=== PATIENT | female | born 1945 | race Caucasian/White ===

== ENCOUNTER 2016-05-10 19:17 | Emergency (ER) | payer MEDICARE, BC ==
[~2016-05-10] VITALS: Ht 172.7 cm; Wt 77.4 kg
[2016-05-10] VITALS (8 sets, daily range): BP systolic 85–195; BP diastolic 44–91; PULSE 74–124; RESP 16–22; TEMP 97.9; O2SAT 95–99
[~2016-05-10 19:17] MED LIST: ALPR0.25 PO; AMLO5TAB2 PO; ASPI81CH CHEW; CYCL1TAB29 PO; FLUT50SP EACH NARE; FLUTI44I INH; GENT0.2D2 EACH EYE; HYDR-3516 PO; MECL12.574 PO; MONT10TA2 PO; MULTTAB67 PO; RANI150C PO; TRIA.1%T TOPICAL; VENTAER INH
--- NOTE | 2016-05-10 19:53 | PD ---
HPI Chief Complaint: Hypertension Time Seen by Provider: 19:39 Travel History International Travel<30 days: No Contact w/Intl Traveler<30days: No Traveled to known affect area: No History of Present Illness HPI 70-year-old female here for evaluation of elevated blood pressure and left shoulder pain. The patient reports having an aching sensation in her left shoulder/neck area that radiates down her left arm causing paresthesias down her left arm. She was seen and a neurology clinic today, and has MRI scheduled for tomorrow. While in the office, it was noted that her blood pressure was elevated around 180/100. She was told to take a Xanax when she got home. She states that instead of taking his Xanax she took an extra half of her amlodipine as well as a hydrocodone pill. Repeat blood pressure was still elevated, so she decided to present to the emergency department for evaluation. She denies history of cardiac disease. There is family history of cardiac disease. She tells me that she has a left bundle branch block and is followed by corporate safety coordinator Dr. Ge. No dyspnea. PFSH Past Medical History Diabetes: No Diminished Hearing: No Hypertension: Yes Social History Alcohol Use: No Tobacco Use: No Substance Use: No Allergies-Medications (Allergen,Severity, Reaction): Coded Allergies: Benadryl (Verified Allergy, Severe, Dizziness, 05/10/16) Reported Meds & Prescriptions Reported Meds & Active Scripts Active Ranitidine (Ranitidine HCl) 150 Mg Cap 150 Mg PO DAILY PRN Meclizine (Meclizine HCl) 12.5 Mg Tab 12.5 Mg PO DIRECTED PRN Flexeril (Cyclobenzaprine HCl) 10 Mg Tab 10 Mg PO WEEK PRN Flovent Hfa 10.6 GM Inh (Fluticasone Propionate) 44 Mcg/Act Inh 2 Puff INH DAILY 1-2 puffs daily at the same time. Ventolin Hfa 18 GM Inh (Albuterol Sulfate) 90 Mcg/Act Aer 1 Puff INH Q4H PRN Singulair (Montelukast Sodium) 10 Mg Tab 10 Mg PO HS Reported Aspirin 81 Mg Chew 81 Mg CHEW DAILY Multiple Vitamin 1 Tab 1 Tab PO DAILY [place] Mild Opth Drops (Hypromellose) 0.2% Drops 1 Drop EACH EYE Q6H PRN Hydrocodone-Acetaminophen 5-325 mg Tab 1 Tab PO WEEK PRN Aspirin 81 Mg Chew 81 Mg CHEW DAILY Alprazolam 0.25 Mg Tab 0.25 Mg PO WEEKLY PRN Triamcinolone Topical (Triamcinolone Acetonide) 0.1% Cream 1 Applic TOPICAL ONCE Fluticasone Nasal [place] 50 Mcg/Act Naspr 50 Mcg EACH NARE DAILY 50 mcg/spray Amlodipine (Amlodipine Besylate) 5 Mg Tab 2.5 Mg PO DAILY Review of Systems Except as stated in HPI: all other systems reviewed are Neg Physical Exam Narrative GENERAL: Well-developed, well-nourished, appears anxious, no acute distress. SKIN: Warm and dry. No rash. HEAD: Atraumatic. Normocephalic. EYES: Pupils equal and round. No scleral icterus. No injection or drainage. ENT: Mucous membranes pink and moist. NECK: Trachea midline. No JVD. CARDIOVASCULAR: Regular rate and rhythm. Distal pulses brisk and equal bilaterally. RESPIRATORY: No accessory muscle use. Clear to auscultation. Breath sounds equal bilaterally. GASTROINTESTINAL: Abdomen soft, non-tender, nondistended. MUSCULOSKELETAL: No obvious deformities. No clubbing. No cyanosis. No edema. NEUROLOGICAL: Awake and alert. No obvious cranial nerve deficits. Motor grossly within normal limits. Normal speech. PSYCHIATRIC: Appropriate mood and affect; insight and judgment normal. Data Data Last Documented VS Vital Signs Date Time Temp Pulse Resp B/P Pulse Ox O2 Delivery O2 Flow Rate FiO2 05/10/16 22:12 95 20 192/72 98 Room Air 05/10/16 19:25 97.9 Orders Electrocardiogram (05/10/16 19:50) Basic Metabolic Panel (Bmp) (05/10/16 19:50) Ckmb (Isoenzyme) Profile (05/10/16 19:50) Complete Blood Count With Diff (05/10/16 19:50) Magnesium (Mg) (05/10/16 19:50) Prothrombin Time / Inr (Pt) (05/10/16 19:50) Act Partial Throm Time (Ptt) (05/10/16 19:50) Troponin I (05/10/16 19:50) Chest, Single Ap (05/10/16 19:50) Ecg Monitoring (05/10/16 19:50) Bilateral Bp Monitoring (05/10/16 19:50) Iv Access Insert/Monitor (05/10/16 19:50) Oximetry (05/10/16 19:50) Sodium Chloride 0.9% Flush (Ns Flush) (05/10/16 20:00) Nitroglycerin Sl (Nitrostat Sl) (05/10/16 20:00) Sodium Chlor 0.9% 1000 Ml Inj (Ns 1000 M (05/10/16 20:30) CKMB (05/10/16 20:10) CKMB% (05/10/16 20:10) Alprazolam (Xanax) (05/10/16 21:15) Troponin I (05/10/16 22:00) Labs Laboratory Tests Test 05/10/16 05/10/16 20:10 21:55 White Blood Count 11.6 TH/MM3 Red Blood Count 4.11 MIL/MM3 Hemoglobin 13.3 GM/DL Hematocrit 37.7 % Mean Corpuscular Volume 91.8 FL Mean Corpuscular Hemoglobin 32.5 PG Mean Corpuscular Hemoglobin 35.3 % Concent Red Cell Distribution Width 12.3 % Platelet Count 228 TH/MM3 Mean Platelet Volume 7.7 FL Neutrophils (%) (Auto) 75.2 % Lymphocytes (%) (Auto) 17.3 % Monocytes (%) (Auto) 4.5 % Eosinophils (%) (Auto) 0.8 % Basophils (%) (Auto) 2.2 % Neutrophils # (Auto) 8.8 TH/MM3 Lymphocytes # (Auto) 2.0 TH/MM3 Monocytes # (Auto) 0.5 TH/MM3 Eosinophils # (Auto) 0.1 TH/MM3 Basophils # (Auto) 0.3 TH/MM3 CBC Comment DIFF FINAL Differential Comment Prothrombin Time 10.5 SEC Prothromb Time International 1.0 RATIO Ratio Activated Partial 24.7 SEC Thromboplast Time Sodium Level 137 MEQ/L Potassium Level 4.1 MEQ/L Chloride Level 102 MEQ/L Carbon Dioxide Level 27.1 MEQ/L Anion Gap 8 MEQ/L Blood Urea Nitrogen 17 MG/DL Creatinine 0.88 MG/DL Estimat Glomerular Filtration 63 ML/MIN Rate Random Glucose 120 MG/DL Calcium Level 8.4 MG/DL Magnesium Level 2.0 MG/DL Total Creatine Kinase 104 U/L Creatine Kinase MB 1.6 NG/ML Troponin I LESS THAN 0.02 LESS THAN 0.02 NG/ML NG/ML MDM Medical Decision Making Medical Screen Exam Complete: Yes Emergency Medical Condition: Yes Interpretation(s) EKG: Sinus, rate 105, left axis deviation, LBBB, LVH, Differential Diagnosis ACS, pneumothorax, pericarditis, PE, pneumonia, musculoskeletal pain, dissection Narrative Course Initial vital signs show heart rate 124, blood pressure 164/91, pulse ox 90% on room air, oral temp of 97.9F. The patient was given one sublingual nitroglycerin and her blood pressure dropped to 85/44. She was given some normal saline IV, and her blood pressure returned to 164/78. Repeat heart rate is 86. CBC is unremarkable. BMP is unremarkable. Cardiac enzymes are negative. Chest x-ray: Mild consolidation and possible small effusion on the left lung base. She has not been coughing. She has no upper respiratory symptoms. I do not believe she has pneumonia. The patient was made aware of all findings. She tells me that she feels very anxious and is requesting a Xanax. I told her I would like to admit her to the chest pain center for further cardiac evaluation as I am concerned about her symptoms of shoulder pain. She is convinced that her pain in her shoulder and left neck is related to a pinched nerve in her left neck and is musculoskeletal. She tells me that she has had this in the past intermittently. She tells me she does not wish to be admitted to the hospital. I told her I would like to do a repeat troponin, and if this is negative, I will let her go home. Repeat troponin 3 hours after the first is also negative. Patient was made aware of all findings. She is resting comfortably. She tells me she would like to be discharged home. I told her and still concerned about her heart. I will discharge her home with strict return instructions. Diagnosis Primary Impression: Atypical chest pain Additional Impression: Elevated blood pressure reading Referrals: Primary Care Physician 3 days Additional Instructions: Follow-up with your primary care physician this week. Return to the emergency department for worsening symptoms or any other concerns. Disposition: 01 DISCHARGE HOME Condition: Stable Xavi Villanueva MD May 10, 2016 19:53
[2016-05-10] MEDS ORDERED: NITROGLYCERIN 0.4 MG SL 25 TABS/BTL SL ONE (20:00)
[2016-05-10] MEDS ORDERED: SODIUM CHLORIDE 0.9% FLUSH 5 ML FLUSH IVF PRN (20:00)
--- NOTE | 2016-05-10 20:14 | RADHPO ---
EXAM DATE/TIME: 05/10/2016 20:03 [facility] COMPARISON: No previous studies available for comparison. INDICATIONS : Shortness of breath. MEDICAL HISTORY : None. SURGICAL HISTORY : None. ENCOUNTER: Initial ACUITY: 1 day PAIN SCORE: 0/10 LOCATION: Bilateral chest FINDINGS: Mild consolidation and possible small effusion seen left base. Right lung clear. No pneumothorax on e ither side Heart size within normal limits. CONCLUSION: Mild consolidation and possible small effusion of the left lung base. Star Zurita MD on May 10, 2016 at 20:12 Board Certified Radiologist. This report was verified electronically.
[2016-05-10 20:23] LABS: AUTOMATED NEUTROPHIL # 8.8 TH/MM3 (1.8-7.7); BASOPHIL # 0.3 TH/MM3 (0-0.2); BASOPHIL % 2.2 % (0.0-2.0); EOSINOPHIL # 0.1 TH/MM3 (0-0.4); EOSINOPHIL % 0.8 % (0.0-4.0); HEMATOCRIT 37.7 % (35.0-46.0); LYMPH % 17.3 % (9.0-44.0); MEAN CELL VOLUME 91.8 FL (80.0-100.0); MEAN CORPUSCULAR HEMOGLOBIN 32.5 PG (27.0-34.0); MEAN CORPUSCULAR HGB CONC 35.3 % (32.0-36.0); MONO % 4.5 % (0.0-8.0); NEUT % 75.2 % (16.0-70.0); PLATELET COUNT 228 TH/MM3 (150-450); RED BLOOD COUNT 4.11 MIL/MM3 (4.00-5.30); RED CELL DISTRIBUTION WIDTH 12.3 % (11.6-17.2); WHITE BLOOD COUNT 11.6 TH/MM3 (4.0-11.0)
[2016-05-10 20:30] LABS: CHLORIDE 102 MEQ/L (98-107); POTASSIUM 4.1 MEQ/L (3.5-5.1); SODIUM (NA) 137 MEQ/L (136-145)
[2016-05-10] MEDS ORDERED: SODIUM CHLOR 0.9% 1000 ML INJ 1,000 ML IV ONE (20:30)
[2016-05-10 20:32] LABS: HEMO FLAGS DIFF FINAL
[2016-05-10 20:34] LABS: ANION GAP 8 MEQ/L (5-15); BICARBONATE 27.1 MEQ/L (21.0-32.0); BLOOD UREA NITROGEN 17 MG/DL (7-18)
[2016-05-10 20:35] LABS: APTT (PATIENT) 24.7 SEC (24.3-30.1); PROTHROMBIN TIME - PATIENT 10.5 SEC (9.8-11.6)
[2016-05-10 20:37] LABS: GLOMERULAR FILTRATION RATE 63 ML/MIN (>89)
[2016-05-10 20:40] LABS: CREATINE KINASE 104 U/L (26-192)
[2016-05-10] MEDS ORDERED: ASPI81CH CHEW (20:41)
[2016-05-10 20:52] LABS: CKMB 1.6 NG/ML (0.5-3.6)
[2016-05-10] MEDS ORDERED: ALPRAZolam 0.25 MG TAB PO ONE (21:15)
--- NOTE | 2016-05-11 15:04 | EKG ---
Date Performed: 05/10/2016 Time Performed: 19:50:02 PTAGE: 70 years EKG: Sinus tachycardia. Interventricular conduction delay Left axis deviation Incomplete LBBB In ferior infarct - age undetermined Possible anteroseptal infarct - age undetermined ST-T changes are p robably due to repolarization Low QRS voltages in precordial leads Abnormal ECG NO PREVIOUS TRACING No prior for comparison DOCTOR: Carin Hein Interpretating Date/Time 05/11/2016 15:04:14
[2016-05-14] MEDS ORDERED: SERT25TA83 PO (12:25)
[2016-06-04] MEDS ORDERED: BUSP5TAB PO (10:49)
[2016-06-04] MEDS ORDERED: SERT25TA83 PO (10:49)
[2016-06-18] MEDS ORDERED: BUSP5TAB PO (13:27)
[2016-06-27] MEDS ORDERED: AMLO5TAB2 PO (09:33)
== END 2016-05-10 23:52 | disposition home or self-care (01) ==
LOC: PHED 19:17
DX: I10 Essential (primary) hypertension (principal); R07.89 Other chest pain; I44.7 Left bundle-branch block, unspecified
CPT/HCPCS: 71010; 80048; 82550; 82552; 83735; 84484; 85025; 85610; 85730; 93005; 99284; J7030

== ENCOUNTER 2017-08-11 11:21 | Emergency (ER) | payer MEDICARE, BC ==
[~2017-08-11 11:21] MED LIST changes: +ALPR.25 PO; -ALPR0.25 PO; +ASPI-516 CHEW; -ASPI81CH CHEW; +CYCL10TA PO; -CYCL1TAB29 PO; +EZET10 PO; -FLUT50SP EACH NARE; -FLUTI44I INH; -HYDR-3516 PO; -MULTTAB67 PO; +OMEGCAP PO; -TRIA.1%T TOPICAL; +VITA250T3 PO
[2017-08-11 11:26] VITALS: BP 151/80; PULSE 102; RESP 20; TEMP 97.4; O2SAT 100
[2017-08-11] MEDS ORDERED: ASPI-183 PO (12:21)
[2017-08-11] MEDS ORDERED: PRAV10TA PO (12:23)
[2017-08-11] MEDS ORDERED: KETOROLAC TROMETHAMINE 60 MG/2 ML (IM) VIAL IM ONE (12:45)
[2017-08-11] MEDS ORDERED: NAPR-855 PO (12:55)
--- NOTE | 2017-08-11 12:56 | PD ---
HPI Chief Complaint: Musculoskeletal Complaint Time Seen by Provider: 12:19 Travel History International Travel<30 days: No Contact w/Intl Traveler<30days: No Traveled to known affect area: No History of Present Illness HPI 70-year-old woman presents emerged from left shoulder pain. She has a history of chronic shoulder pain that she attributes to her chronic neck problems and a pinched nerve. She has had it for years. She states every time she is on physical therapy in the past she tended up worse. She decided to try physical therapy again at her doctor's recommendation. She does several days ago and now she has worsening left shoulder pain. No numbness tingling or weakness. No other complaints. Bpiv-kmo-coqipvd medicines have not really helped at home. History Past Medical History Narrative Medical Hyperlipidemia Hypertension Anxiety Influenza Vaccination: Yes : 1 Para: 1 Social History Alcohol Use: Yes Tobacco Use: No Allergies-Medications (Allergen,Severity, Reaction): Coded Allergies: diphenhydramine (Verified Allergy, Severe, Dizziness, 08/11/17) Reported Meds & Prescriptions Reported Meds & Active Scripts Active Amlodipine (Amlodipine Besylate) 5 Mg Tab 5 Mg PO DAILY Singulair (Montelukast Sodium) 10 Mg Tab 10 Mg PO HS Ranitidine (Ranitidine HCl) 150 Mg Cap 150 Mg PO DAILY PRN Meclizine (Meclizine HCl) 12.5 Mg Tab 12.5 Mg PO DIRECTED PRN Flexeril (Cyclobenzaprine HCl) 10 Mg Tab 10 Mg PO WEEK PRN Ventolin Hfa 18 GM Inh (Albuterol Sulfate) 90 Mcg/Act Aer 1 Puff INH Q4H PRN Reported Pravastatin 10 Mg Tab 10 Mg PO DAILY Aspirin 325 Mg Tab 650 Mg PO DAILY [place]-3 Fish Oil/Vitamin (Fish Oil-Cholecalciferol) 1,000-1,000 Mg Cap 1 Cap PO DAILY Vitamin C (Ascorbic Acid) 250 Mg Tab 500 Mg PO DAILY Xanax (Alprazolam) 0.25 Mg Tab 0.25 Mg PO Q8H PRN Review of Systems Except as stated in HPI: all other systems reviewed are Neg Physical Exam Narrative GENERAL: Well-appearing 71-year-old woman, no acute distress. SKIN: Warm and dry. CARDIOVASCULAR: Warm and well perfused. RESPIRATORY: Normal rate and effort. MUSCULOSKELETAL: Normal appearance of neck and shoulder, full range of motion, strength full and equal in the upper extremities. Normal sensation bilaterally. NEUROLOGICAL: Awake and alert. No gross deficits. Data Data Last Documented VS Vital Signs Date Time Temp Pulse Resp B/P (MAP) Pulse Ox O2 Delivery O2 Flow Rate FiO2 08/11/17 11:26 97.4 102 20 151/80 (103) 100 Orders Orders Ketorolac Inj (Toradol Inj) (08/11/17 12:45) [facility] Medical Decision Making Medical Screen Exam Complete: Yes Emergency Medical Condition: Yes Differential Diagnosis Strain or sprain, herniated disc, fracture, other Narrative Course Well-appearing 70-year-old woman with acute on chronic left shoulder pain. Normal exam. Looks well. Likely radicular pain from previous. May be exacerbated physical therapy. Recommend NSAIDs and supportive treatment. Diagnosis Primary Impression: radiculopathy LUE Patient Instructions: General Instructions Additional Instructions: Take naproxen as prescribed. Follow-up with your physician as planned. Return to the emergency department for any numbness, tingling, weakness, or any other new or worsening symptoms. Med/Other Pt SpecificInfo: Prescription(s) given Scripts Naproxen (Naproxen) 375 Mg Tab 375 MG PO BID for 7 Days, #14 TAB 0 Refills Prov: Usman Wright MD 08/11/17 Disposition: 01 DISCHARGE HOME Condition: Stable Usman Wright MD Aug 11, 2017 12:56
== END 2017-08-11 13:05 | disposition home or self-care (01) ==
LOC: PHED 11:21
DX: M54.12 Radiculopathy, cervical region (principal); M25.512 Pain in left shoulder; I10 Essential (primary) hypertension; F41.9 Anxiety disorder, unspecified
CPT/HCPCS: 96372; 99283; J1885